=== PATIENT | male | born 1950 | race Asian ===

== ENCOUNTER 2017-05-17 12:45 | Day surgery (SDC) | payer OTHER ==
[2017-05-17 14:25] VITALS: BP 131/80; PULSE 68; RESP 20; TEMP 97.3; O2SAT 98
[2017-05-17] MEDS ORDERED: LIDOCAINE HCL 1% 20 ML VIAL ONE (14:34)
[2017-05-17 14:40] VITALS: BP 125/76; PULSE 67; RESP 20; O2SAT 98
--- NOTE | 2017-05-17 15:20 | RADRPT ---
EXAM DATE/TIME: 05/17/2017 13:22 [place] COMPARISON: No previous studies available for comparison. EXTERNAL COMPARISON: [employer], US THYROID, Mar 24 2017. INDICATIONS : Enlarged right thyroid nodule. MEDICAL HISTORY : Diabetes mellitus type 2. Renal calculi. Hyperlipidemia. Enlarged right thyroid nodule. SURGICAL HISTORY : Kidney stone removal. ENCOUNTER: Initial ACUITY: 2 months PAIN SCORE: 0/10 LOCATION: Right neck ORGAN: Right thyroid lobe SPECIMENS: Three fine needle aspirate(s) submitted for pathologic evaluation. DEVICE: 22 gauge needle Post procedure scanning reveals no hematoma or other complication. The possibility does exist that the tissue obtained will be non-diagnostic. If the sample is non-danielle gnostic a repeat biopsy or surgical biopsy may need to be performed. TECHNIQUE: 1. Ultrasound guidance for needle biopsy. 2. Needle biopsy. The risks, benefits and alternatives to the procedure were explained and verbal and written consent w as obtained. The site was prepped in sterile fashion. Full sterile technique was used, including ca p, mask, sterile gloves and gown and a large sterile sheet. Hand hygiene and 2% chlorhexidine and/or betadine/alcohol prep was utilized per protocol for cutaneous antisepsis. The skin and subcutaneous tissues were infiltrated with local anesthetic solution. Sterile gel and sterile probe cover were u tilized for ultrasound guidance. With the patient on the ultrasound table, images were obtained. The dominant lesion involving the rig ht lobe was targeted. This is largely cystic in nature. A needle was advanced into the identified target and 3 specimens as above obtained and submitted for pathologic evaluation. Brownish fluid was noted with each passage of the needle. There is no solid n odular component to access for better cellular content. The patient tolerated the procedure well and left the ultrasound suite in stable condition. CONCLUSION: Uncomplicated ultrasound guided needle biopsy of a cystic nodule involving the right thyroid as detai led above. The preliminary interpretation is low in cellular content which is not surprising given th e cystic nature of the lesion. Continued sampling will result in the same result. Homero Currie Jr., MD on May 17, 2017 at 15:15 Board Certified Radiologist. This report was verified electronically.
== END 2017-05-17 14:45 | disposition home or self-care (01) ==
LOC: HRAD 12:45 → HRIP 12:47 → HRAD 14:45
DX: E04.1 Nontoxic single thyroid nodule (principal); E78.5 Hyperlipidemia, unspecified
CPT/HCPCS: 10022; 76942; 88172; 88173